=== PATIENT | female | born 1970 | race Caucasian/White ===

== ENCOUNTER 2016-12-02 19:35 | Emergency (ER) | payer MEDICAID ==
[2016-12-02 22:30] VITALS: BP 150/107
== END 2016-12-02 22:30 | disposition home or self-care (01) ==
LOC: ED 19:35
DX: T26.01XA Burn of right eyelid and periocular area, initial encounter (principal); X08.8XXA Exposure to other specified smoke, fire and flames, initial encounter; Y93.89 Activity, other specified; Y99.8 Other external cause status; Y92.89 Other specified places as the place of occurrence of the external cause

== ENCOUNTER 2016-12-03 16:38 | Emergency (ER) | payer MEDICAID ==
[2016-12-03 16:41] VITALS: BP 150/85
== END 2016-12-03 17:20 | disposition home or self-care (01) ==
LOC: ED 16:38
DX: H10.211 Acute toxic conjunctivitis, right eye (principal); T20.10XA Burn of first degree of head, face, and neck, unspecified site, initial encounter; T31.0 Burns involving less than 10% of body surface

== ENCOUNTER 2016-12-05 20:16 | Emergency (ER) | payer MEDICAID ==
[~2016-12-05] VITALS: Ht 152.4 cm; Wt 44.9 kg
[2016-12-05 23:18] VITALS: BP 139/77
== END 2016-12-05 23:18 | disposition home or self-care (01) ==
LOC: ED 20:16
DX: H10.211 Acute toxic conjunctivitis, right eye (principal); Z79.899 Other long term (current) drug therapy; X08.8XXA Exposure to other specified smoke, fire and flames, initial encounter; Y93.89 Activity, other specified; Y92.89 Other specified places as the place of occurrence of the external cause; Y99.8 Other external cause status

== ENCOUNTER 2019-10-11 03:05 | Emergency (ER) | payer OTHER ==
[~2019-10-11] VITALS: Ht 152.4 cm; Wt 49.7 kg
[2019-10-11 03:18] VITALS: Ht 152.4 cm; Wt 49.7 kg
[2019-10-11 04:28] LABS: BASOPHIL % 0.2 % (0-2); PLATELET COUNT 376 x10^3mcL (130-400); RED CELL DISTRIBUTION WIDTH 13.4 % (11.5-14.5)
[2019-10-11 05:06] LABS: BILIRUBIN TOTAL 0.25 mg/dL (0.20-1.00); CARBON DIOXIDE 28 mmol/L (21-32); CHLORIDE SERUM 99 mmol/L (98-107); CREATININE SERUM 0.6 mg/dL (0.6-1.0); GFR1 > 60 mL/min; GLUCOSE SERUM 145 mg/dL (74-106); POTASSIUM SERUM 3.5 mmol/L (3.5-5.1); SODIUM SERUM 138 mmol/L (136-145); TOTAL PROTEIN, SERUM 8.8 g/dL (6.4-8.2)
[2019-10-11 05:07] LABS: ALKALINE PHOSPHATASE 108 U/L (46-116); ALT/SGPT 38 U/L (14-59); AMYLASE 131 U/L (25-115); AST/SGOT 16 U/L (15-37)
[2019-10-11 05:44] LABS: LIPASE 123 IU/L (73-393)
[2019-10-11 06:20] VITALS: BP 130/81
== END 2019-10-11 06:20 | disposition home or self-care (01) ==
LOC: ED 03:05
PROVIDERS: Emergency Medicine
DX: K21.9 Gastro-esophageal reflux disease without esophagitis (principal)
CPT/HCPCS: 87804; C9113; J2405; J2765; J7030

== ENCOUNTER 2019-10-11 23:14 | Emergency (ER) | payer OTHER ==
[~2019-10-11] VITALS: Ht 152.4 cm; Wt 49.9 kg
[2019-10-11 23:25] VITALS: Ht 152.4 cm; Wt 49.9 kg
[2019-10-12 05:14] LABS: BASOPHIL % 0.3 % (0-2); PLATELET COUNT 374 x10^3mcL (130-400); RED CELL DISTRIBUTION WIDTH 13.3 % (11.5-14.5)
[2019-10-12 06:18] LABS: CALCIUM 9.4 mg/dL (8.5-10.1); CARBON DIOXIDE 28.3 mmol/L (21-32); CHLORIDE SERUM 103 mmol/L (98-107); CREATININE SERUM 0.5 mg/dL (0.6-1.0); GFR1 > 60 mL/min; GLUCOSE SERUM 115 mg/dL (74-106); POTASSIUM SERUM 3.7 mmol/L (3.5-5.1); SODIUM SERUM 139 mmol/L (136-145)
[2019-10-12 06:23] LABS: ALBUMIN 3.8 g/dL (3.4-5.0); ALKALINE PHOSPHATASE 89 U/L (46-116); AMYLASE 50 U/L (25-115); AST/SGOT 12 U/L (15-37); BILIRUBIN TOTAL 0.3 mg/dL (0.20-1.00); LIPASE 109 IU/L (73-393)
[2019-10-12 06:27] LABS: TOTAL PROTEIN, SERUM 8.3 g/dL (6.4-8.2)
[2019-10-12 07:26] LABS: ALT/SGPT 34 U/L (14-59)
[2019-10-12 08:27] VITALS: BP 160/80
== END 2019-10-12 08:27 | disposition home or self-care (01) ==
LOC: ED 23:14
PROVIDERS: Emergency Medicine
DX: R10.13 Epigastric pain (principal); R11.2 Nausea with vomiting, unspecified
CPT/HCPCS: 36415; Q0162